=== PATIENT | female | born 1980 | race Two or more races ===

== ENCOUNTER 2017-03-03 11:34 | Inpatient (IN) | payer OTHER ==
[~2017-03-03] VITALS: Ht 172.7 cm; Wt 122.5 kg
[2017-03-03] MEDS ORDERED: LACTATED RINGERS 1,000 ML IV SCH (12:17)
[2017-03-03] MEDS ORDERED: DEXT 5%/LR + PITOCIN 20UNITS/L 1,000 ML IV SCH ×2 (12:17→14:34)
[2017-03-03] MEDS ORDERED: LIDOCAINE HCL 1% 20ML VIAL (Pyxis) INJ INFIL SCH (12:30)
[2017-03-03] MEDS ORDERED: BUTORPHANOL TARTRATE 2 MG/ML VIAL IV PRN (12:30)
[2017-03-03] MEDS ORDERED: METHYLERGONOVINE MALEATE 0.2 MG/ML IM PRN (12:30)
[2017-03-03] MEDS ORDERED: PENICILLIN G POTASSIUM 5 MMU in DEXT 5% WATER 100 ML IV SCH (13:00)
[2017-03-03] MEDS ORDERED: MISOPROSTOL 200MCG TABLET RC NR (13:05)
[2017-03-03] MEDS ORDERED: MISOPROSTOL 200MCG TABLET ONE (13:11)
[2017-03-03] MEDS ORDERED: GLYCERIN/WITCH HAZEL LEAF MEDICATED PAD TOP PRN (14:45)
[2017-03-03] MEDS ORDERED: IBUPROFEN 400MG TABLET PO PRN (14:45)
[2017-03-03] MEDS ORDERED: BISACODYL 10MG SUPP PR PRN (14:45)
[2017-03-03] MEDS ORDERED: HEMORRHOIDAL SUPP PR PRN (14:45)
[2017-03-03] MEDS ORDERED: ACETAMINOPHEN WITH CODEINE 300/30MG TABLET PO PRN (14:45)
[2017-03-03] MEDS ORDERED: DIPHENHYDRAMINE 25MG CAPSULE PO PRN (14:45)
[2017-03-03] MEDS ORDERED: LANOLIN OINT 0.25 GM TUBE TOP PRN (14:45)
[2017-03-03] MEDS: ACETAMINOPHEN WITH CODEINE 300/30MG TABLET PO PRN (14:48)
[2017-03-03 15:14] LABS: CLARITY URINE CLEAR (CLEAR); COLOR URINE YELLOW (YELLOW); GLUCOSE URINE NEGATIVE (NEGATIVE); KETONES URINE NEGATIVE (NEGATIVE); LEUKOCYTE ESTERASE URINE NEGATIVE (NEGATIVE); NITRITE URINE NEGATIVE (NEGATIVE); OCCULT BLOOD URINE 2+ (NEGATIVE); PROTEIN URINE 1+ (NEGATIVE); SPECIFIC GRAVITY URINE 1.024 (1.005-1.030)
[2017-03-03 15:19] LABS: BASOPHILS % 0.5 % (0.0-2.0); EOSINOPHILS % 0.6 % (0.0-5.0); HEMATOCRIT. 35.6 % (36.0-48.0); HEMOGLOBIN. 11.8 g/dL (12.0-16.0); LYMPHOCYTES % 15.3 % (20.0-50.0); MEAN CORPUSCULAR HEMOGLOBIN 26.3 pg (28.0-32.0); MEAN CORPUSCULAR VOLUME 79.5 fL (81.0-99.0); MEAN PLATELET VOLUME 8.4 fl (7.4-10.4); NEUTROPHILS % 77.6 % (40.0-76.0); PLATELET 326 x1000/uL (130-400); RED BLOOD CELL COUNT 4.48 mill/uL (4.2-5.4); RED CELL DISTRIBUTION WIDTH 15.5 % (11.6-14.6)
[2017-03-03 15:21] LABS: PARTIAL THROMBOPLASTIN TIME 26.6 sec (23.4-31.0); PROTHROMBIN TIME 10.1 sec (9.4-11.6)
[2017-03-03 15:33] LABS: *AMPHETAMINES SCREEN URINE NEGATIVE (NEGATIVE); *BARBITURATES SCREEN URINE NEGATIVE (NEGATIVE); *BENZODIAZEPINES SCREEN URINE NEGATIVE (NEGATIVE); *COCAINE SCREEN URINE NEGATIVE (NEGATIVE); CANNABINOID URINE SCREEN NEGATIVE (NEGATIVE); METHADONE URINE SCREEN NEGATIVE (NEGATIVE); OPIATES URINE SCREEN NEGATIVE (NEGATIVE); PHENCYCLIDINE URINE SCREEN NEGATIVE (NEGATIVE)
[2017-03-03 16:00] VITALS: BP 120/57
[2017-03-03 16:04] LABS: HEPATITIS B SURFACE ANTIGEN NEGATIVE
[2017-03-03 20:00] VITALS: BP 118/61
[2017-03-03] MEDS: SIMETHICONE 80MG TABLET CHEW PO SCH (21:00)
[2017-03-03] MEDS: DOCUSATE SODIUM 100MG CAPSULE PO SCH (21:44)
[2017-03-04 04:10] VITALS: BP 122/63
[2017-03-04 07:11] LABS: BASOPHILS % 0.4 % (0.0-2.0); EOSINOPHILS % 1.1 % (0.0-5.0); HEMOGLOBIN. 10.4 g/dL (12.0-16.0); LYMPHOCYTES % 24.1 % (20.0-50.0); MEAN CORPUSCULAR HEMOGLOBIN 25.9 pg (28.0-32.0); MEAN PLATELET VOLUME 8.2 fl (7.4-10.4); MONOCYTES % 5.7 % (2.0-8.0); NEUTROPHILS % 68.7 % (40.0-76.0); PLATELET 261 x1000/uL (130-400); RED BLOOD CELL COUNT 4.01 mill/uL (4.2-5.4); RED CELL DISTRIBUTION WIDTH 15.5 % (11.6-14.6)
[2017-03-04 08:00] VITALS: BP 136/87
[2017-03-04] MEDS: SIMETHICONE 80MG TABLET CHEW PO SCH ×4 (08:41→21:40)
[2017-03-04] MEDS: PRENATAL VIT/FE FUMARATE/FA TABLET PO SCH (08:42)
[2017-03-04 16:00] VITALS: BP 120/78
[2017-03-04] MEDS ORDERED: MEDROXYPROGESTERONE ACETATE 150MG/ML VIAL IM NR (16:00)
[2017-03-04] MEDS: DOCUSATE SODIUM 100MG CAPSULE PO SCH (21:40)
[2017-03-04] MEDS: ACETAMINOPHEN WITH CODEINE 300/30MG TABLET PO PRN (21:44)
[2017-03-05 00:15] VITALS: BP 101/51
[2017-03-05 07:35] VITALS: BP 118/81
[2017-03-05] MEDS: SIMETHICONE 80MG TABLET CHEW PO SCH (08:18)
[2017-03-05] MEDS: PRENATAL VIT/FE FUMARATE/FA TABLET PO SCH (08:18)
[2017-03-05] MEDS ORDERED: TETANUS, DIPHTHERIA, PERTUSSIS VAC/PF 0.5ML (>7YR OLD) IM ONE (10:00)
== END 2017-03-05 10:55 | disposition home or self-care (01) | DRG 560 ==
LOC: L&D 11:34 → OBSVTOIN 11:34 → 7EST PP/OB 15:48
PROVIDERS: ADMIT Specialist; ATTEND Specialist
PROC: 10E0XZZ Delivery of Products of Conception, External Approach (ICD-10-PCS; principal; 2017-03-03 12:52)
DX: O77.0 Labor and delivery complicated by meconium in amniotic fluid (principal); Z68.41 Body mass index [BMI] 40.0-44.9, adult; O99.214 Obesity complicating childbirth; D64.9 Anemia, unspecified; O90.81 Anemia of the puerperium; O87.4 Varicose veins of lower extremity in the puerperium; E66.9 Obesity, unspecified; Z3A.40 40 weeks gestation of pregnancy; Z37.0 Single live birth; O09.523 Supervision of elderly multigravida, third trimester; Z90.49 Acquired absence of other specified parts of digestive tract
CPT/HCPCS: 36415; 80305; 81001; 85025; 85610; 85730; 86592; 86703; 86762; 86850; 86900; 87340; 90715; 99281; J1050; J2540; J2590; J7060; J7120

== ENCOUNTER 2020-02-22 09:50 | Observation (INO) | payer OTHER ==
[~2020-02-22] VITALS: Ht 172.7 cm; Wt 131.5 kg
[2020-02-22] MEDS ORDERED: PREN-15 PO (10:23)
[2020-02-22] MEDS ORDERED: ACETAMINOPHEN WITH CODEINE 300/30MG TABLET PO NR (10:45)
[2020-02-22 10:58] VITALS: BP 114/68
[2020-02-22 11:18] LABS: CLARITY URINE CLEAR (CLEAR); COLOR URINE DARK YELLOW (YELLOW); KETONES URINE TRACE (NEGATIVE); LEUKOCYTE ESTERASE URINE TRACE (NEGATIVE); NITRITE URINE NEGATIVE (NEGATIVE); OCCULT BLOOD URINE 1+ (NEGATIVE); PH URINE 5.5 (4.5-8.0); PROTEIN URINE TRACE (NEGATIVE); SPECIFIC GRAVITY URINE 1.025 (1.005-1.030)
[2020-02-22 11:27] LABS: *BENZODIAZEPINES SCREEN URINE NEGATIVE (NEGATIVE); *COCAINE SCREEN URINE NEGATIVE (NEGATIVE); CANNABINOID URINE SCREEN NEGATIVE (NEGATIVE); METHADONE URINE SCREEN NEGATIVE (NEGATIVE); OPIATES URINE SCREEN NEGATIVE (NEGATIVE); PHENCYCLIDINE URINE SCREEN NEGATIVE (NEGATIVE)
[2020-02-22 11:29] LABS: *AMPHETAMINES SCREEN URINE NEGATIVE (NEGATIVE); *BARBITURATES SCREEN URINE NEGATIVE (NEGATIVE)
[2020-02-22] MEDS ORDERED: SODIUM CHLORIDE 0.9% 1,000 ML IV SCH (12:00)
[2020-02-22] MEDS ORDERED: CEFAZOLIN 2,000 MG in DEXT 5% WATER 100 ML IV NR (13:00)
== END 2020-02-22 13:20 | disposition home or self-care (01) ==
LOC: 8 EST LDRP 09:50
PROVIDERS: ADMIT Specialist; ATTEND Specialist
DX: O99.89 Other specified diseases and conditions complicating pregnancy, childbirth and the puerperium (principal); M54.9 Dorsalgia, unspecified; Z3A.38 38 weeks gestation of pregnancy; Z79.899 Other long term (current) drug therapy
CPT/HCPCS: 59025; 76770; 76805; 76818; 80305; 81003; 96365; G0378; J0690; J7060; 96360; 99281; J7030

== ENCOUNTER 2020-03-14 06:13 | Inpatient (IN) | payer OTHER ==
[~2020-03-14] VITALS: Ht 172.7 cm; Wt 133.8 kg
[~2020-03-14 06:13] MED LIST: PREN-15 PO
[2020-03-14] MEDS ORDERED: MISOPROSTOL 200MCG TABLET ONE (08:00)
[2020-03-14] MEDS ORDERED: LACTATED RINGERS 1,000 ML IV SCH (13:19)
[2020-03-14] MEDS ORDERED: DEXT 5%/LR + PITOCIN 20UNITS/L 1,000 ML IV SCH ×2 (13:19→21:02)
[2020-03-14] MEDS ORDERED: NALOXONE HCL 0.4 MG/ML 1ML VIAL IM PRN (13:30)
[2020-03-14] MEDS ORDERED: BUTORPHANOL TARTRATE 2 MG/ML VIAL IV PRN (13:30)
[2020-03-14] MEDS ORDERED: METHYLERGONOVINE MALEATE 0.2 MG/ML IM PRN (13:30)
[2020-03-14] MEDS ORDERED: CARBOPROST TROMETHAMINE 250 MCG/ML AMPUL IM PRN (13:30)
[2020-03-14] MEDS ORDERED: LIDOCAINE HCL 1% 20ML VIAL (Pyxis) INJ INFIL SCH (13:30)
[2020-03-14 15:34] LABS: BASOPHILS % 1.3 % (0.0-2.0); EOSINOPHILS % 0.9 % (0.0-5.0); HEMATOCRIT. 38.7 % (36.0-48.0); HEMOGLOBIN. 12.6 g/dL (12.0-16.0); LYMPHOCYTES % 15.1 % (20.0-50.0); MEAN CORPUSCULAR HEMOGLOBIN 26.5 pg (28.0-32.0); MEAN CORPUSCULAR VOLUME 81.2 fL (81.0-99.0); MEAN PLATELET VOLUME 7.8 fl (7.4-10.4); NEUTROPHILS % 76.7 % (40.0-76.0); PLATELET 351 x1000/uL (130-400); RED BLOOD CELL COUNT 4.77 mill/uL (4.2-5.4); RED CELL DISTRIBUTION WIDTH 16.1 % (11.6-14.6)
[2020-03-14 15:39] LABS: CHLORIDE 106 mEq/L (98-107)
[2020-03-14 15:43] LABS: INR 1.1; PARTIAL THROMBOPLASTIN TIME 29.8 sec (23.4-31.0); PROTHROMBIN TIME 11.2 sec (9.6-11.0)
[2020-03-14 16:15] LABS: CLARITY URINE CLOUDY (CLEAR); COLOR URINE DARK YELLOW (YELLOW); KETONES URINE NEGATIVE (NEGATIVE); LEUKOCYTE ESTERASE URINE 3+ (NEGATIVE); NITRITE URINE NEGATIVE (NEGATIVE); OCCULT BLOOD URINE 3+ (NEGATIVE); PH URINE 6.5 (4.5-8.0); PROTEIN URINE 1+ (NEGATIVE); SPECIFIC GRAVITY URINE 1.019 (1.005-1.030)
[2020-03-14 16:26] LABS: *AMPHETAMINES SCREEN URINE NEGATIVE (NEGATIVE); *BARBITURATES SCREEN URINE NEGATIVE (NEGATIVE)
[2020-03-14 16:27] LABS: *BENZODIAZEPINES SCREEN URINE NEGATIVE (NEGATIVE); *COCAINE SCREEN URINE NEGATIVE (NEGATIVE); METHADONE URINE SCREEN NEGATIVE (NEGATIVE); OPIATES URINE SCREEN NEGATIVE (NEGATIVE); PHENCYCLIDINE URINE SCREEN NEGATIVE (NEGATIVE)
[2020-03-14 16:29] LABS: CANNABINOID URINE SCREEN NEGATIVE (NEGATIVE)
[2020-03-14] MEDS ORDERED: ROPIVACAINE HCL/PF EPIDURAL 200 ML EPI SCH (16:30)
[2020-03-14 16:39] LABS: HEPATITIS B SURFACE ANTIGEN NEGATIVE
[2020-03-14] MEDS ORDERED: LIDOCAINE HCL 2%/EPINEPHRINE 1:100,000 20 ML VIAL INFIL ONE (19:58)
[2020-03-14] MEDS ORDERED: GLYCERIN/WITCH HAZEL LEAF MEDICATED PAD TOP PRN (21:15)
[2020-03-14] MEDS ORDERED: LANOLIN OINT 7GM TUBE TOP PRN (21:15)
[2020-03-14] MEDS ORDERED: OXYCODONE HCL/ACETAMINOPHEN 5/325MG TABLET PO PRN (21:15)
[2020-03-14] MEDS ORDERED: HEMORRHOIDAL SUPP PR PRN (21:15)
[2020-03-14] MEDS ORDERED: IBUPROFEN 400MG TABLET PO PRN (21:15)
[2020-03-14] MEDS ORDERED: DIPHENHYDRAMINE 25MG CAPSULE PO PRN (21:15)
[2020-03-15] MEDS: IBUPROFEN 800MG TABLET PO PRN ×3 (00:09→15:30)
[2020-03-15 01:10] VITALS: BP 123/73
[2020-03-15 01:40] VITALS: BP 130/76
[2020-03-15 05:55] VITALS: BP 118/78
[2020-03-15 06:50] LABS: BASOPHILS % 0.7 % (0.0-2.0); EOSINOPHILS % 0.9 % (0.0-5.0); HEMATOCRIT. 30.4 % (36.0-48.0); LYMPHOCYTES % 16.1 % (20.0-50.0); MEAN CORPUSCULAR HEMOGLOBIN 26.6 pg (28.0-32.0); MEAN CORPUSCULAR VOLUME 80.6 fL (81.0-99.0); MEAN PLATELET VOLUME 7.6 fl (7.4-10.4); MONOCYTES % 6.7 % (2.0-8.0); NEUTROPHILS % 75.6 % (40.0-76.0); PLATELET 267 x1000/uL (130-400); RED BLOOD CELL COUNT 3.77 mill/uL (4.2-5.4); RED CELL DISTRIBUTION WIDTH 15.5 % (11.6-14.6)
[2020-03-15] MEDS: METHYLERGONOVINE MALEATE 0.2MG TABLET PO SCH ×3 (08:53→21:00)
[2020-03-15] MEDS: FERROUS SULFATE 325MG TABLET PO SCH ×2 (08:55→15:31)
[2020-03-15 09:00] VITALS: BP 107/74
[2020-03-15] MEDS ORDERED: PRENATAL VIT/FE FUMARATE/FA TABLET PO SCH (09:00)
[2020-03-15 16:00] VITALS: BP 109/58
[2020-03-15 19:45] VITALS: BP 126/78
[2020-03-15] MEDS ORDERED: DOCUSATE SODIUM 100MG CAPSULE PO SCH (21:00)
== END 2020-03-15 21:20 | disposition home or self-care (01) | DRG 560 ==
LOC: OBSVTOIN 06:13 → INTOOBSV 06:13 → 8 EST A/PP 06:13 → 8 EST LDRP 14:22 → 8 EST A/PP 03-15 01:00
PROVIDERS: ADMIT Specialist; ATTEND Specialist
PROC: 10E0XZZ Delivery of Products of Conception, External Approach (ICD-10-PCS; principal; 2020-03-14)
PROC: 3E0R3BZ Introduction of Anesthetic Agent into Spinal Canal, Percutaneous Approach (ICD-10-PCS; 2020-03-14)
PROC: 00HU33Z Insertion of Infusion Device into Spinal Canal, Percutaneous Approach (ICD-10-PCS; 2020-03-14)
DX: O48.0 Post-term pregnancy (principal); O76 Abnormality in fetal heart rate and rhythm complicating labor and delivery; O77.0 Labor and delivery complicated by meconium in amniotic fluid; O99.214 Obesity complicating childbirth; E66.9 Obesity, unspecified; O98.52 Other viral diseases complicating childbirth; Z3A.40 40 weeks gestation of pregnancy; Z37.0 Single live birth
CPT/HCPCS: 36415; 76815; 76818; 80053; 80305; 81003; 84550; 85025; 86592; 86703; 86762; 86850; 86900; 87340; 99281; G0378; J2590; J2795; J3490; J7120